=== PATIENT | female | born 1970 | race Caucasian/White ===

== ENCOUNTER 2017-04-29 10:07 | Day surgery (SDC) | payer BC ==
[~2017-04-29] VITALS: Ht 165.1 cm; Wt 84.0 kg
[2017-04-29] VITALS (12 sets, daily range): BP systolic 84–111; BP diastolic 50–69; PULSE 54–73; RESP 16–18; Ht 165.1 cm; Wt 84.0 kg
[2017-04-29] MEDS ORDERED: BUTA1CAP38 PO (10:41)
[2017-04-29] MEDS ORDERED: LEVO500T72 PO (10:41)
[2017-04-29] MEDS ORDERED: MECL-77 PO (10:41)
--- NOTE | 2017-04-29 14:07 | PREOPHP ---
DATE OF ADMISSION: 04/29/2017 HISTORY OF PRESENT ILLNESS: This is a 46-year-old lady, 2, para 2. Her last normal menstrual period was a few months prior to admission. She was admitted for D and C, hysteroscopy, possible suction curettage and cervical polypectomy. This patient bleeds heavy with her periods for many months. She had an ultrasound done and showed also a possible endometrial polyp. She had an endometrial biopsy and attempted removal of the polyp in the clinic but was unsuccessful, so she was admitted for D and C, hysteroscopy and suction curettage. The procedures were explained to the patient and she understood everything totally. The risks, benefits and alternatives were discussed with her as well. PAST PERSONAL HISTORY: asthma. ALLERGIES: NO ALLERGIES. SOCIAL HISTORY: Patient does not smoke. She does not drink. MEDICATIONS: She does not take any drugs but her iron and vitamins. GYNECOLOGIC HISTORY: She had menarche at the age of 11, every 28 days interval , 3 to 4 days duration, and moderate in amount. FAMILY HISTORY: Noncontributory. REVIEW OF SYSTEMS: CARDIOVASCULAR: No chest pain. RESPIRATORY: No cough. GASTROINTESTINAL: No diarrhea. No vomiting. GENITOURINARY: No dysuria. PHYSICAL EXAMINATION: GENERAL: Reveals a conscious coherent lady and in no acute distress. VITAL SIGNS: Her blood pressure 120/80, pulse rate 80 per minute, respirations 16 per minute. BREASTS, HEART AND LUNGS: Within normal limits. ABDOMEN: Soft. No organomegaly. PELVIC: Revealed the cervix to be firm, uterus of the upper limits of normal, and adnexa were negative for masses. RECTAL: Confirmed the pelvic findings. EXTREMITIES: No pedal edema. ADMITTING DIAGNOSIS: Menorrhagia, rule out endometrial polyp and cervical polyp. PLAN: The patient was planned to have the above procedures. The procedures were explained to her and she understood everything totally. The risks, benefits and alternatives were discussed with her as well. Dictated By: FRANCA JAY MD NS/NTS Conf#: [id number] DID#: [id number] CC: FRANCA JAY MD;*EndCC* MTDD
[2017-04-29] MEDS ORDERED: MIDAZOLAM 1 MG/ML 2 ML INJ ONE (14:11)
[2017-04-29] MEDS ORDERED: FENTAnyl 50 MCG/ML VIAL ONE (14:11)
[2017-04-29] MEDS ORDERED: PROPOFOL 20 ML ONE ×2 (14:11→15:03)
[2017-04-29] MEDS ORDERED: KETOROLAC 30 MG INJ ONE (14:52)
[2017-04-29] MEDS ORDERED: ONDANSETRON 4 MG INJ ONE (14:52)
[2017-04-29] MEDS ORDERED: DEXAMETHASONE 4 MG/ML 1 ML INJ ONE (14:52)
[2017-04-29] MEDS ORDERED: METOCLOPRAMIDE 10 MG INJ ONE (14:52)
[2017-04-29] MEDS ORDERED: METOCLOPRAMIDE 10 MG INJ IV PRN (15:00)
[2017-04-29] MEDS ORDERED: morphine (1 MG/ML) 10ML SYRINGE IV PRN ×3 (15:00)
[2017-04-29] MEDS ORDERED: OXYCODONE/ACETAMINOPHEN (5/325) TAB PO PRN ×2 (15:00)
[2017-04-29] MEDS ORDERED: MEPERIDINE 25 MG INJ IV PRN (15:00)
[2017-04-29] MEDS ORDERED: ONDANSETRON 4 MG INJ IV PRN (15:00)
[2017-04-29] MEDS ORDERED: DIPHENHYDRAMINE 50 MG INJ IV PRN (15:00)
[2017-04-29] MEDS ORDERED: HYDROmorphONE (0.2 MG/ML) 10ML SYG IV PRN ×3 (15:00)
[2017-04-29] MEDS ORDERED: EPHEDrine SULFATE 50 MG/5 ML SYG IV PRN (15:00)
[2017-04-29] MEDS ORDERED: SILVER NITRATE SWAB ONE (15:09)
[2017-04-29] MEDS ORDERED: ACETAMINOPHEN 325 MG TAB PO PRN (15:30)
--- NOTE | 2017-05-01 03:54 | OPR ---
DATE OF OPERATION: 04/29/2017 PREOPERATIVE DIAGNOSES: 1. Cervical polyp. 2. Posterior vaginal vault polyp. 3. Endometrial thickening. POSTOPERATIVE DIAGNOSES: 1. Cervical polyp. 2. Posterior vaginal vault polyp. 3. Endometrial thickening. 4. Pending pathology report. SURGEON: Rachana Barrientos MD MANAGER OF PMO: Alexander melara. ANESTHESIA: General. OPERATION PERFORMED: Fractional dilatation and curettage hysteroscopy and suction curettage, cervic al polypectomy, and posterior vaginal vault polypectomy. OPERATIVE TECHNIQUE: Under general anesthesia, the patient was prepped and draped in the usual [facility] ion for vaginal surgery. Pelvic exam under anesthesia revealed the cervix to be firm, uterus of nor mal size, and adnexa were negative for masses. Then, the heavy weight vaginal retractor was put in place, and the anterior lip of the cervix was grasped with an Allis clamp. A 1 cm endocervical poly p was excised by putting the Allis clamp at the endocervical canal. This was followed by endocervic al dilatation up to Hegar 6. Uterus was sounded to about 3 inches. Then, the hysteroscope was inse rted inside the uterine cavity and connected with a light source, and the uterus was distended with normal saline. There were no polyps nor fibroids seen. Endocervical curettage was performed, and a small amount of tissue was obtained. Endometrial curettage was performed, and a small amount of ti ssue was obtained. Suction tip size 7 was inserted inside the uterine cavity, suction curettage was done, and small amount of tissue was obtained. Then, the polyp was noted to be about 3 x 3 cm on t he posterior vaginal vault below the cervix, and this was excised by placing the band at the base of the polyp. Then, the capsule was cauterized with silver nitrate. Bleeders were checked, and there was no bleeding noted. After checking for any bleeders of which there were none, the procedure was terminated. The patient tolerated the procedure well. Estimated blood loss was minimal. Vital si gns were stable during and after the procedure. As mentioned, the cervical polyp was 1 x 1 cm, and the posterior vaginal vault polyp was 3 x 3 cm. The patient tolerated the procedure well. Estimate d blood loss was minimal. Vital signs were stable during and after the procedure. Dictated By: RACHANA BARRIENTOS MD NS/NTS Conf#: [id number] DID#: [id number]
== END 2017-04-29 16:35 | disposition home or self-care (01) ==
LOC: SDS 10:07
PROVIDERS: ATTEND Obstetrics & Gynecology
DX: N84.2 Polyp of vagina (principal); N72 Inflammatory disease of cervix uteri; N84.1 Polyp of cervix uteri
CPT/HCPCS: 58558; 84703; 88305; J1100; J1885; J2250; J2405; J2765; J3010; Z7512; Z7610

== ENCOUNTER 2019-04-16 18:09 | Inpatient (IN) | payer BC ==
[~2019-04-16] VITALS: Ht 165.1 cm; Wt 88.3 kg
[~2019-04-16 18:09] MED LIST: BUTA1CAP38 PO; LEVO500T48 PO; MECL-77 PO
[2019-04-17 00:36] VITALS: BP 124/56; PULSE 78; RESP 18
[2019-04-17] MEDS ORDERED: ACETAMINOPHEN 325 MG TAB PO PRN (01:00)
[2019-04-17] MEDS: PIPER-TAZO 3.375 GM IV (PMX) 100 ML IVPB SCH ×4 (01:11→22:49)
[2019-04-17] MEDS: SOD CHLORIDE 0.9% 1,000 ML IV SCH ×2 (01:11→21:00)
[2019-04-17 01:33] VITALS: Ht 165.1 cm; Wt 88.3 kg
[2019-04-17 01:38] VITALS: BP 105/53; PULSE 62; RESP 16
[2019-04-17] MEDS: PANTOPRAZOLE (EC) 40 MG TAB PO SCH (05:42)
[2019-04-17 07:43] VITALS: BP 110/58; PULSE 59; RESP 17
[2019-04-17] MEDS: ENOXAPARIN 40 MG/0.4 ML SYG SC SCH (08:27)
--- NOTE | 2019-04-17 11:57 | HP ---
Date/Time of Note Date/Time of Note DATE: 04/17/19 TIME: 11:47 Assessment/Plan VTE Prophylaxis Risk score (from Ns)>0 risk: 2 SCD applied (from Ns): No SCD contraindicated: other Pharmacological prophylaxis: LMWH Lines/Catheters IV C[facility]ter Type (from [facility]): Peripheral IV Urinary Cath still in place: No Assessment/Plan Hospital Course 1. Cellulitis right arm more likely due to Herpes zoster. 2. hyperglycemia, pt denied DM type II 3. Obesity 4. Under arm fungal infection old 5. Fresh papula on the trunk right side Assessment/Plan -Hg A1 c 5.3 -clotrimazole cream under the breast -cont droplet isolation -titer Herpes Zoster, pt had disease when she was young -Id consult dr yousif, called -DVT prop lOVeNOX -gi PROPH. PROTONIX Result Diagram: 04/17/198 04/17/19427 Results 24hrs Laboratory Tests Test 04/17/19 04:28 White Blood Count 6.7 Red Blood Count 4.20 Hemoglobin 12.8 Hematocrit 38.1 Mean Corpuscular Volume 90.7 Mean Corpuscular Hemoglobin 30.5 Mean Corpuscular Hemoglobin Concent 33.6 Red Cell Distribution Width 12.7 Platelet Count 129 L Mean Platelet Volume 11.3 H Immature Granulocytes % 0.400 Neutrophils % 54.8 Lymphocytes % 29.1 Monocytes % 6.6 Eosinophils % 8.7 H Basophils % 0.4 Nucleated Red Blood Cells % 0.0 Immature Granulocytes # 0.030 Neutrophils # 3.7 Lymphocytes # 1.9 Monocytes # 0.4 Eosinophils # 0.6 H Basophils # 0.0 Nucleated Red Blood Cells # 0.0 Sodium Level 141 Potassium Level 4.0 Chloride Level 111 H Carbon Dioxide Level 22 Anion Gap 8 Blood Urea Nitrogen 12 Creatinine 0.53 Est Glomerular Filtrat Rate mL/min > 60 Glucose Level 82 Calcium Level 8.0 L Total Bilirubin 0.8 Direct Bilirubin 0.00 Indirect Bilirubin 0.8 Aspartate Amino Transf (AST/SGOT) 21 Alanine Aminotransferase (ALT/SGPT) 30 Alkaline Phosphatase 62 Total Protein 5.9 L Albumin 2.9 L Globulin 3.00 Albumin/Globulin Ratio 0.96 HPI/ROS Admit Date/Time Admit Date/Time April 17, 2019 at 00:11 Hx of Present Illness This 48 yo female with no medical hx initally was seen in ER regarfding her right arm rash for 1 week and was prscribed steroids and Acyclovir. RAsh is not changes, despite she got more blisters on trunk. Pt went to [facility] ER, In ER lab was drawn grossly normal except RBC 5.21, eos. 6.6%in CBC and BMP madeleine; normal lactic acid. She was given normal saline, started on Rocephin, , acyclovir was continued, , dexamethasone was c/ed started on isolation, MRSA was taken, results are not available. No radiologic studyes was done. Med. rec was reviewed. PMH/Family/Social Past Medical History Medications Current Medications Diphenhydramine HCl (Benadryl) 25 mg TID PRN PO ITCHING; Start 04/17/19 at 01:00 Acetaminophen/ Hydrocodone Bitart ([place] (5/325)) 1 tab Q6H PRN PO MODERATE PAIN LEVEL 4-6; Start 04/17/19 at 01:00 Enoxaparin Sodium (Lovenox) 40 mg DAILY SC Last administered on 04/17/19at 08:27; Admin Dose 40 MG; Start 04/17/19 at 09:00 Pantoprazole (Protonix Tab) 40 mg DAILY@06 PO Last administered on 04/17/19at 05:42; Admin Dose 40 MG; Start 04/17/19 at 06:00 Acetaminophen (Tylenol Tab) 650 mg Q6H PRN PO MILD PAIN(1-3)OR ELEVATED TEMP; Start 04/17/19 at 01:00 Piperacillin Sod/ Tazobactam Sod 100 ml @ 200 mls/hr Q8 IVPB Last administered on 04/17/19at 05:43; Admin Dose 200 MLS/HR; Start 04/17/19 at 01:00 Sodium Chloride 1,000 ml @ 50 mls/hr Q20H IV Last administered on 04/17/19at 01:11; Admin Dose 50 MLS/HR; Start 04/17/19 at 01:00 Coded Allergies: No Known Allergy (Unverified , 04/29/17) Past Surgical History Past Surgical Hx: other (c section) Social History Alcohol Use: none Smoking Status: Never smoker Drug Use: none Exam/Review of Systems Vital Signs Vitals Vital Signs Date Temp Pulse Resp B/P (MAP) Pulse Ox O2 O2 Flow FiO2 Time Delivery Rate 5/19/19 98.5 59 17 110/58 98 07:43 (75) Intake and Output 04/16/19 04/16/19 04/17/19 1515:00 23:00 07:00 IntakeIntake Total 350 ml BalanceBalance 350 ml Exam Exam under the breast chronic changes fungal type Constitutional: alert, oriented Respiratory: clear to auscultation Cardiovascular: regular rate and rhythm Gastrointestinal: soft Skin: rash or lesions (right arm), other (trunk fresh lesions) BRANDON SANTANA April 17, 2019 11:57
[2019-04-17] MEDS: CLOTRIMAZOLE 1% 30 GM CR TOP SCH ×2 (14:33→22:07)
[2019-04-17] MEDS: ACYCLOVIR 800 MG TAB PO SCH ×2 (14:34→22:06)
[2019-04-17 14:50] VITALS: BP 102/71; PULSE 75; RESP 17
--- NOTE | 2019-04-17 16:57 | CONS ---
DATE OF ADMISSION: 04/17/2019 DATE OF CONSULTATION: 04/17/2019 TYPE OF CONSULTATION: Infectious disease. REASON FOR CONSULTATION: Antibiotic management. HISTORY OF PRESENT ILLNESS: Siri Jimenez is a 48-year-old female in generally good health wh o is seen in the emergency room with right arm rash of 1 week's duration. She was prescribed steroid s and acyclovir. She also got more blisters on her trunk. She went to [facility] Room, where she was evaluated and also was started on Rocephin and acyclovir was continued. Dexamet hasone was discontinued and MRSA swab was taken. The patient was sent to [facility]. On ad mission, white count 6.7, H and H 12.8 and 38.5, platelet count 129,000. BUN and creatinine is 12/0. 53, glucose of 82. The patient has cellulitis of the right arm. PAST MEDICAL HISTORY: Operations as outlined. FAMILY HISTORY: Noncontributory. SOCIAL HISTORY: Does not smoke, drink or abuse drugs. ALLERGIES: NONE TO PENICILLIN, SULFA OR FOODS. MEDICATIONS: Per chart. REVIEW OF SYSTEMS: As per HPI. PHYSICAL EXAMINATION: GENERAL: The patient is a moderately obese female who is awake, responsive, in no acute distress. VITAL SIGNS: Stable. She is afebrile. SKIN: Without generalized rash. She has evidence of herpes zoster of the right arm with some cellul itis. NECK: Supple. LYMPH NODES: None palpable. CHEST: Decreased breath sounds at the bases. HEART: Without murmur or gallop. ABDOMEN: Soft, nontender without organosplenomegaly or masses. EXTREMITIES: Without cyanosis, clubbing or edema. RECTAL AND GENITAL: Deferred. NEUROLOGIC: No focal neurological abnormality. IMPRESSION AND PLAN: The patient with probable herpes zoster, white count of 6.7. The patient has r ight arm rash for about a week. At this time, she is on acyclovir 800 mg 3 times a day. She has mai trimazole lotion for fungal infection and she was given Zosyn for the possibility of cellulitis, alth ough we may want to switch her over to vancomycin or to a medication that covers methicillin-resistan t Staphylococcus aureus. Wound care consult has been ordered. I will dictate my findings to the hos pitalist and also to Dr. Crow and Dr. Duron and nurse practitioner, Meseret Menchaca. Dictated By: QUIN MOCTEZUMA MD, JD/TANVIR Conf#: [id number] DID#: [id number] CC: TARAS CROW MD;*EndCC*
[2019-04-17] MEDS ORDERED: VANCOMYCIN IV PER PHARMACY XX SCH (17:00)
[2019-04-17] MEDS ORDERED: VANCOMYCIN HCL 1.75 GM in SOD CHLORIDE 0.9% 500 ML IVPB ONE (18:00)
[2019-04-17 20:43] VITALS: BP 114/67; PULSE 70; RESP 18
[2019-04-18 01:36] VITALS: BP 111/56; PULSE 67; RESP 18
[2019-04-18] MEDS: HYDROCODONE/APAP (5/325) TAB PO PRN ×2 (01:46→20:16)
[2019-04-18] MEDS: SOD CHLORIDE 0.9% 1,000 ML IV SCH (03:16)
[2019-04-18] MEDS: PIPER-TAZO 3.375 GM IV (PMX) 100 ML IVPB SCH ×2 (05:08→13:21)
[2019-04-18] MEDS: PANTOPRAZOLE (EC) 40 MG TAB PO SCH (05:52)
[2019-04-18] MEDS ORDERED: VANCOMYCIN HCL 1.5 GM in SOD CHLORIDE 0.9% 250 ML IVPB SCH (06:00)
[2019-04-18 07:37] VITALS: BP 119/61; PULSE 64; RESP 18
[2019-04-18] MEDS: CLOTRIMAZOLE 1% 30 GM CR TOP SCH ×2 (08:19→20:17)
[2019-04-18] MEDS: ACYCLOVIR 800 MG TAB PO SCH ×3 (08:19→20:16)
[2019-04-18] MEDS: ENOXAPARIN 40 MG/0.4 ML SYG SC SCH (08:22)
--- NOTE | 2019-04-18 13:54 | CONS ---
Assessment/Plan Assessment/Plan Hospital Course (Demo Recall) Patient is alert eating lunch looks comfortable denies pain no fevers overnight WBC 6.9 no shift no bands BUN 14 creatinine 0.56 Antimicrobials: Vancomycin, Zosyn, acyclovir Physical examination: Obese well-developed middle-aged woman who is alert in no distress. Head atraumatic normocephalic neck is supple chest rise symmetrical breath sounds diminished bases. Heart: S1-S2. Abdomen soft bowel sounds present. Extremities without cyanosis. Skin. Right upper extremity with hepatic lesions also on the right breast extending to the trunk Assessment: 1. Herpes zoster with superimposed right upper extremity cellulitis 2. Diabetes Plan: Continue acyclovir, DC vancomycin and Zosyn, add doxycycline, serology for HIV Consultation Date/Type/Reason Admit Date/Time April 17, 2019 at 00:11 Initial Consult Date Type of Consult id Date/Time of Note DATE: 04/18/19 TIME: 13:53 Exam/Review of Systems Exam Vitals Vital Signs Date Temp Pulse Resp B/P (MAP) Pulse Ox O2 O2 Flow FiO2 Time Delivery Rate 04/18/19 98.5 64 18 119/61 97 07:37 (80) Intake and Output 04/17/19 04/17/19 04/18/19 1515:00 23:00 07:00 IntakeIntake Total 960 ml 2014 ml 575 ml BalanceBalance 960 ml 2014 ml 575 ml Results Result Diagram: 04/18/19 0433 04/18/19 0433 Results 24hrs Laboratory Tests Test 04/18/19 04:33 White Blood Count 6.9 Red Blood Count 4.20 Hemoglobin 12.9 Hematocrit 37.7 Mean Corpuscular Volume 89.8 Mean Corpuscular Hemoglobin 30.7 Mean Corpuscular Hemoglobin Concent 34.2 Red Cell Distribution Width 12.5 Platelet Count 159 # Mean Platelet Volume 10.7 H Immature Granulocytes % 0.300 Neutrophils % 65.4 Lymphocytes % 20.3 Monocytes % 7.1 Eosinophils % 6.6 Basophils % 0.3 Nucleated Red Blood Cells % 0.0 Immature Granulocytes # 0.020 Neutrophils # 4.5 Lymphocytes # 1.4 Monocytes # 0.5 Eosinophils # 0.5 Basophils # 0.0 Nucleated Red Blood Cells # 0.0 Sodium Level 140 Potassium Level 3.9 Chloride Level 109 Carbon Dioxide Level 25 Anion Gap 6 Blood Urea Nitrogen 14 Creatinine 0.56 Est Glomerular Filtrat Rate mL/min > 60 Glucose Level 102 Calcium Level 8.6 Medications Medication Current Medications Diphenhydramine HCl (Benadryl) 25 mg TID PRN PO ITCHING; Start 04/17/19 at 01:00 Acetaminophen/ Hydrocodone Bitart ([place] (5/325)) 1 tab Q6H PRN PO MODERATE PAIN LEVEL 4-6 Last administered on 04/18/19 01:46; Admin Dose 1 TAB; Start 04/17/19 at 01:00 Enoxaparin Sodium (Lovenox) 40 mg DAILY SC Last administered on 04/18/19 08:22; Admin Dose 40 MG; Start 04/17/19 at 09:00 Pantoprazole (Protonix Tab) 40 mg DAILY@06 PO Last administered on 04/18/19 05:52; Admin Dose 40 MG; Start 04/17/19 at 06:00 Acetaminophen (Tylenol Tab) 650 mg Q6H PRN PO MILD PAIN(1-3)OR ELEVATED TEMP; Start 04/17/19 at 01:00 Piperacillin Sod/ Tazobactam Sod 100 ml @ 200 mls/hr Q8 IVPB Last administered on 04/18/19 13:21; Admin Dose 200 MLS/HR; Start 04/17/19 at 01:00 Sodium Chloride 1,000 ml @ 50 mls/hr Q20H IV Last administered on 04/18/19 03:16; Admin Dose 50 MLS/HR; Start 04/17/19 at 01:00 Acyclovir (Zovirax) 800 mg TID PO Last administered on 04/18/19 13:21; Admin Dose 800 MG; Start 04/17/19 at 13:00 Clotrimazole (Lotrimin Cr) 1 applic BID TOP Last administered on 04/18/19 08:19; Admin Dose 1 APPLIC; Start 04/17/19 at 12:30 Vancomycin HCl (Vanco Iv Per Pharmacy) VANCOMYCIN PER PHARMACY PER PROTOCOL XX ; Start 04/17/19 at 17:00 Vancomycin HCl 1.5 gm/Sodium Chloride 250 ml @ 83.333 mls/ hr Q12H IVPB Last administered on 04/18/19 05:49; Admin Dose 83.333 MLS/HR; Start 5/20/19 at 06:00 LILLIAN CROWLEY NP April 18, 2019 13:54
[2019-04-18 14:53] VITALS: BP 107/61; PULSE 71; RESP 16
--- NOTE | 2019-04-18 15:50 | PN ---
Date/Time of Note Date/Time of Note DATE: 04/18/19 TIME: 15:50 Assessment/Plan VTE Prophylaxis Risk score (from Ns)>0 risk: 2 SCD applied (from [facility]): No SCD contraindicated: low risk/ambulating Pharmacological prophylaxis: NA/contraindicated Pharm contraindication: low risk/ambulating Lines/Catheters IV Catheter Type (from [facility]): Peripheral IV Urinary Cath still in place: No Assessment/Plan Hospital Course 1. Cellulitis right arm with clear blisters/abdominal lesion ? Herpes zoster.?? allergic , it happened when pt was working in [employer] 2. hyperglycemia, HBA1C normal 3. Obesity 4. Under arm fungal infection old 5. Fresh papula on the trunk right side Assessment/Plan - on acyclovir/doxy -titer Herpes Zoster, pt had disease when she was young -Id consult dr yousif, called - wound culture -?? steroids, tried contacting Dr Rice dermatology who dont see hmo pts -DVT prop lOVeNOX Result Diagram: 04/18/19 0433 04/18/19 0433 Results 24hrs Laboratory Tests Test 04/18/19 04:33 White Blood Count 6.9 Red Blood Count 4.20 Hemoglobin 12.9 Hematocrit 37.7 Mean Corpuscular Volume 89.8 Mean Corpuscular Hemoglobin 30.7 Mean Corpuscular Hemoglobin Concent 34.2 Red Cell Distribution Width 12.5 Platelet Count 159 # Mean Platelet Volume 10.7 H Immature Granulocytes % 0.300 Neutrophils % 65.4 Lymphocytes % 20.3 Monocytes % 7.1 Eosinophils % 6.6 Basophils % 0.3 Nucleated Red Blood Cells % 0.0 Immature Granulocytes # 0.020 Neutrophils # 4.5 Lymphocytes # 1.4 Monocytes # 0.5 Eosinophils # 0.5 Basophils # 0.0 Nucleated Red Blood Cells # 0.0 Sodium Level 140 Potassium Level 3.9 Chloride Level 109 Carbon Dioxide Level 25 Anion Gap 6 Blood Urea Nitrogen 14 Creatinine 0.56 Est Glomerular Filtrat Rate mL/min > 60 Glucose Level 102 Calcium Level 8.6 HIV (1&2) Antibody NEGATIVE Subjective 24 Hr Interval Summary Free Text/Dictation perisistent rash in rt arm no fevers no pain Exam/Review of Systems Exam Vitals Vital Signs Date Temp Pulse Resp B/P (MAP) Pulse Ox O2 O2 Flow FiO2 Time Delivery Rate 04/18/19 98.0 71 16 107/61 97 14:53 (76) Intake and Output 04/17/19 04/17/19 04/18/19 1515:00 23:00 07:00 IntakeIntake Total 960 ml 2014 ml 575 ml BalanceBalance 960 ml 2014 ml 575 ml Exam Head atraumatic normocephalic neck is supple chest rise symmetrical breath sounds diminished bases. Heart: S1-S2. Abdomen soft bowel sounds present. Ext Skin. Right upper extremity with erthyema blisters multple rt side of abdomen>red streaks Results Results 24hrs Laboratory Tests Test 04/18/19 04:33 White Blood Count 6.9 Red Blood Count 4.20 Hemoglobin 12.9 Hematocrit 37.7 Mean Corpuscular Volume 89.8 Mean Corpuscular Hemoglobin 30.7 Mean Corpuscular Hemoglobin Concent 34.2 Red Cell Distribution Width 12.5 Platelet Count 159 # Mean Platelet Volume 10.7 H Immature Granulocytes % 0.300 Neutrophils % 65.4 Lymphocytes % 20.3 Monocytes % 7.1 Eosinophils % 6.6 Basophils % 0.3 Nucleated Red Blood Cells % 0.0 Immature Granulocytes # 0.020 Neutrophils # 4.5 Lymphocytes # 1.4 Monocytes # 0.5 Eosinophils # 0.5 Basophils # 0.0 Nucleated Red Blood Cells # 0.0 Sodium Level 140 Potassium Level 3.9 Chloride Level 109 Carbon Dioxide Level 25 Anion Gap 6 Blood Urea Nitrogen 14 Creatinine 0.56 Est Glomerular Filtrat Rate mL/min > 60 Glucose Level 102 Calcium Level 8.6 HIV (1&2) Antibody NEGATIVE Medications Medication Current Medications Diphenhydramine HCl (Benadryl) 25 mg TID PRN PO ITCHING; Start 04/17/19 at 01:00 Acetaminophen/ Hydrocodone Bitart ([place] (5/325)) 1 tab Q6H PRN PO MODERATE PAIN LEVEL 4-6 Last administered on 04/18/19at 01:46; Admin Dose 1 TAB; Start 04/17/19 at 01:00 Enoxaparin Sodium (Lovenox) 40 mg DAILY SC Last administered on 04/18/19at 08:22; Admin Dose 40 MG; Start 04/17/19 at 09:00 Pantoprazole (Protonix Tab) 40 mg DAILY@06 PO Last administered on 04/18/19at 05:52; Admin Dose 40 MG; Start 04/17/19 at 06:00 Acetaminophen (Tylenol Tab) 650 mg Q6H PRN PO MILD PAIN(1-3)OR ELEVATED TEMP; Start 04/17/19 at 01:00 Sodium Chloride 1,000 ml @ 50 mls/hr Q20H IV Last administered on 04/18/19at 03:16; Admin Dose 50 MLS/HR; Start 04/17/19 at 01:00 Acyclovir (Zovirax) 800 mg TID PO Last administered on 04/18/19at 13:21; Admin Dose 800 MG; Start 04/17/19 at 13:00 Clotrimazole (Lotrimin Cr) 1 applic BID TOP Last administered on 04/18/19at 08:19; Admin Dose 1 APPLIC; Start 04/17/19 at 12:30 Doxycycline Hyclate (Vibramycin) 100 mg BID PO ; Start 04/18/19 at 21:00 ADRIANA JOHNSON MD April 18, 2019 15:50
[2019-04-18 19:26] VITALS: BP 116/59; PULSE 69; RESP 16
[2019-04-18] MEDS: DOXYCYCLINE 100 MG TAB PO SCH (20:16)
[2019-04-19 02:00] VITALS: BP 113/55; PULSE 71; RESP 16
[2019-04-19] MEDS: PANTOPRAZOLE (EC) 40 MG TAB PO SCH (05:40)
[2019-04-19] MEDS: SOD CHLORIDE 0.9% 1,000 ML IV SCH ×2 (05:40→13:00)
[2019-04-19 07:24] VITALS: BP 107/72; PULSE 59; RESP 17
[2019-04-19] MEDS: ENOXAPARIN 40 MG/0.4 ML SYG SC SCH (09:38)
[2019-04-19] MEDS: DOXYCYCLINE 100 MG TAB PO SCH (09:39)
[2019-04-19] MEDS: ACYCLOVIR 800 MG TAB PO SCH ×3 (09:39→21:11)
[2019-04-19] MEDS: CLOTRIMAZOLE 1% 30 GM CR TOP SCH ×2 (09:41→21:10)
[2019-04-19 13:54] VITALS: BP 117/66; PULSE 86; RESP 17
--- NOTE | 2019-04-19 15:57 | CONS ---
Assessment/Plan Assessment/Plan Hospital Course (Demo Recall) Patient is awake looks comfortable no fevers overnight she has pain under her right breast and right arm no labs this morning Wound culture negative Antimicrobials doxycycline, acyclovir Physical examination: Obese well-developed middle-aged woman who is alert in no distress. Head atraumatic normocephalic neck is supple chest rise symmetrical breath sounds diminished bases. Heart: S1-S2. Abdomen soft bowel sounds present. Extremities without cyanosis. Skin. Right upper extremity with lesions and blisters also on the right breast extending to the trunk Assessment: 1. Herpes zoster with superimposed right upper extremity cellulitis, r/o other ?impetigo 2. Diabetes Plan: Continue acyclovir, restart IV Vanco, await for Zoster serology, supportive care, MRSA screen Consultation Date/Type/Reason Admit Date/Time April 17, 2019 at 00:11 Initial Consult Date Type of Consult id Date/Time of Note DATE: 04/19/19 TIME: 15:54 Exam/Review of Systems Exam Vitals Vital Signs Date Temp Pulse Resp B/P (MAP) Pulse Ox O2 O2 Flow FiO2 Time Delivery Rate 04/19/19 98.8 86 17 117/66 96 Room Air 13:54 (83) Intake and Output 04/18/19 04/18/19 04/19/19 1515:00 23:00 07:00 IntakeIntake Total 1530 ml 990 ml 390 ml BalanceBalance 1530 ml 990 ml 390 ml Results Result Diagram: 04/18/19 0433 04/18/19 0433 Medications Medication Current Medications Diphenhydramine HCl (Benadryl) 25 mg TID PRN PO ITCHING; Start 04/17/19 at 01:00 Acetaminophen/ Hydrocodone Bitart ([place] (5/325)) 1 tab Q6H PRN PO MODERATE PAIN LEVEL 4-6 Last administered on 04/18/19at 20:16; Admin Dose 1 TAB; Start 04/17/19 at 01:00 Enoxaparin Sodium (Lovenox) 40 mg DAILY SC Last administered on 04/19/19at 09:38; Admin Dose 40 MG; Start 04/17/19 at 09:00 Pantoprazole (Protonix Tab) 40 mg DAILY@06 PO Last administered on 04/19/19at 05:40; Admin Dose 40 MG; Start 04/17/19 at 06:00 Acetaminophen (Tylenol Tab) 650 mg Q6H PRN PO MILD PAIN(1-3)OR ELEVATED TEMP; Start 04/17/19 at 01:00 Sodium Chloride 1,000 ml @ 50 mls/hr Q20H IV Last administered on 04/19/19 05:40; Admin Dose 50 MLS/HR; Start 04/17/19 at 01:00 Acyclovir (Zovirax) 800 mg TID PO Last administered on 04/19/19 13:22; Admin Dose 800 MG; Start 04/17/19 at 13:00 Clotrimazole (Lotrimin Cr) 1 applic BID TOP Last administered on 04/19/19 09:41; Admin Dose 1 APPLIC; Start 04/17/19 at 12:30 Doxycycline Hyclate (Vibramycin) 100 mg BID PO Last administered on 04/19/19 09:39; Admin Dose 100 MG; Start 04/18/19 at 21:00 LILLIAN CROWLEY NP April 19, 2019 15:56
[2019-04-19] MEDS ORDERED: VANCOMYCIN IV PER PHARMACY XX SCH (16:00)
[2019-04-19] MEDS: DIPHENHYDRAMINE 25 MG CAP PO PRN (19:10)
[2019-04-19 19:28] VITALS: BP 114/61; PULSE 73; RESP 18
[2019-04-19] MEDS: VANCOMYCIN HCL 1.5 GM in SOD CHLORIDE 0.9% 250 ML IVPB SCH (19:56)
[2019-04-19 22:58] LABS: VARICELLA-ZOSTER VIRUS AB IgM 0.45
[2019-04-20] MEDS: DIPHENHYDRAMINE 25 MG CAP PO PRN (01:04)
[2019-04-20 01:08] VITALS: BP 108/57; PULSE 64; RESP 18
[2019-04-20] MEDS: PANTOPRAZOLE (EC) 40 MG TAB PO SCH (06:08)
[2019-04-20 08:23] VITALS: BP 115/57; PULSE 61; RESP 16
[2019-04-20] MEDS: ACYCLOVIR 800 MG TAB PO SCH (08:47)
[2019-04-20] MEDS: VANCOMYCIN HCL 1.5 GM in SOD CHLORIDE 0.9% 250 ML IVPB SCH ×2 (08:47→18:31)
[2019-04-20] MEDS: ENOXAPARIN 40 MG/0.4 ML SYG SC SCH (09:03)
--- NOTE | 2019-04-20 11:39 | PN ---
Date/Time of Note Date/Time of Note DATE: 04/20/19 TIME: 11:39 Assessment/Plan VTE Prophylaxis Risk score (from Nsg)>0 risk: 1 SCD applied (from Nsg): Yes Pharmacological prophylaxis: NA/contraindicated Pharm contraindication: low risk/ambulating Lines/Catheters IV Catheter Type (from Nrsg): Peripheral IV Urinary Cath still in place: No Assessment/Plan Hospital Course 1. Cellulitis right arm with clear blisters/abdominal lesion clear allergic/contact dermatitis questionable poison al , it happened when pt was working in garden, now on lefta rm with superadded infection 2. hyperglycemia, HBA1C normal 3. Obesity 4. Under arm fungal infection old 5. Fresh papula on the trunk right side Assessment/Plan - pt was seen by dermatology dr paredes who beleived pt had allergic/contact lesions? poison al?? - will start high dose steroids and topical steroids - herpes zoster igm neg - on vanco/zosyn - wound culture -DVT prop lOVeNOX Result Diagram: 04/18/19 0433 04/20/19 0438 Results 24hrs Laboratory Tests Test 04/20/19 04:38 Blood Urea Nitrogen 14 Creatinine 0.59 Subjective 24 Hr Interval Summary Free Text/Dictation spoke to To Dr. Paredes who saw the patient yesterday and believe that patient had a contact/allergic dermatitis with bullous eruptions Given the disease localization dermatome involvement Feels the lesions are present on the right arm are somewhat little improved but however are present on the left arm now Exam/Review of Systems Exam Vitals Vital Signs Date Temp Pulse Resp B/P (MAP) Pulse Ox O2 O2 Flow FiO2 Time Delivery Rate 04/20/19 98.2 61 16 115/57 97 08:23 (76) 04/19/19 Room Air 13:54 Intake and Output 04/19/19 04/19/19 04/20/19 1515:00 23:00 07:00 IntakeIntake Total 480 ml 240 ml 450 ml BalanceBalance 480 ml 240 ml 450 ml Exam Head atraumatic normocephalic neck is supple chest rise symmetrical breath sounds diminished bases. Heart: S1-S2. Abdomen soft bowel sounds present. Ext Skin. Right upper extremity with erthyema blisters multple , left arm streaky lesions rt side of abdomen>red streaks Results Results 24hrs Laboratory Tests Test 04/20/19 04:38 Blood Urea Nitrogen 14 Creatinine 0.59 Medications Medication Current Medications Diphenhydramine HCl (Benadryl) 25 mg TID PRN PO ITCHING Last administered on 04/20/19 01:04; Admin Dose 25 MG; Start 04/17/19 at 01:00 Acetaminophen/ Hydrocodone Bitart ([place] (5/325)) 1 tab Q6H PRN PO MODERATE PAIN LEVEL 4-6 Last administered on 04/18/19 20:16; Admin Dose 1 TAB; Start at 01:00 Enoxaparin Sodium (Lovenox) 40 mg DAILY SC Last administered on 04/20/19 09:03; Admin Dose 40 MG; Start 04/17/19 at 09:00 Pantoprazole (Protonix Tab) 40 mg DAILY@06 PO Last administered on 04/20/19 06:08; Admin Dose 40 MG; Start 04/17/19 at 06:00 Acetaminophen (Tylenol Tab) 650 mg Q6H PRN PO MILD PAIN(1-3)OR ELEVATED TEMP; Start 04/17/19 at 01:00 Clotrimazole (Lotrimin Cr) 1 applic BID TOP Last administered on 04/19/19at 21:10; Admin Dose 1 APPLIC; Start 04/17/19 at 12:30 Vancomycin HCl (Vanco Iv Per Pharmacy) VANCOMYCIN PER PHARMACY PER PROTOCOL XX ; Start 04/19/19 at 16:00 Vancomycin HCl 1.5 gm/Sodium Chloride 250 ml @ 83.333 mls/ hr Q12H IVPB Last administered on 04/20/19 08:47; Admin Dose 83.333 MLS/HR; Start 04/19/19 at 18:30 Piperacillin Sod/ Tazobactam Sod 100 ml @ 200 mls/hr Q6 IVPB ; Start 04/20/19 at 12:00 ADRIANA JOHNSON MD April 20, 2019 11:39
[2019-04-20] MEDS: CLOTRIMAZOLE 1% 30 GM CR TOP SCH ×2 (11:51→20:58)
[2019-04-20] MEDS: PIPER-TAZO 3.375 GM IV (PMX) 100 ML IVPB SCH ×2 (13:45→18:03)
[2019-04-20] MEDS: CLOBETASOL 0.05% 15 GM OINT TOP SCH ×2 (13:45→20:58)
[2019-04-20] MEDS: predniSONE 20 MG TAB PO SCH (13:45)
--- NOTE | 2019-04-20 14:08 | CONS ---
Assessment/Plan Assessment/Plan Hospital Course (Demo Recall) No acute changes patient is alert sitting in bed no fevers overnight. Right arm lesions look better. Zoster virus IgM came back negative. Drainage culture negative Physical examination: Obese well-developed middle-aged woman who is alert in no distress. Head atraumatic normocephalic neck is supple chest rise symmetrical breath sounds diminished bases. Heart: S1-S2. Abdomen soft bowel sounds present. Extremities without cyanosis. Skin. Right upper extremity with lesions and blisters also on the right breast extending to the trunk Assessment: 1. Right upper extremity/right breast lesions with blisters 2. Diabetes Plan: Discontinue acyclovir, add Zosyn, continue IV vancomycin, await for clinical improvement, follow MRSA swab Consultation Date/Type/Reason Admit Date/Time April 17, 2019 at 00:11 Initial Consult Date Type of Consult id Date/Time of Note DATE: 04/20/19 TIME: 14:07 Exam/Review of Systems Exam Vitals Vital Signs Date Temp Pulse Resp B/P (MAP) Pulse Ox O2 O2 Flow FiO2 Time Delivery Rate 04/20/19 98.2 61 16 115/57 97 08:23 (76) 04/19/19 Room Air 13:54 Intake and Output 04/19/19 04/19/19 04/20/19 1515:00 23:00 07:00 IntakeIntake Total 480 ml 240 ml 450 ml BalanceBalance 480 ml 240 ml 450 ml Results Result Diagram: 04/18/19 0433 04/20/19 0438 Results 24hrs Laboratory Tests Test 04/20/19 04:38 Blood Urea Nitrogen 14 Creatinine 0.59 Medications Medication Current Medications Diphenhydramine HCl (Benadryl) 25 mg TID PRN PO ITCHING Last administered on 04/20/19at 01:04; Admin Dose 25 MG; Start 04/17/19 at 01:00 Acetaminophen/ Hydrocodone Bitart ([place] (5/325)) 1 tab Q6H PRN PO MODERATE PAIN LEVEL 4-6 Last administered on 04/18/19at 20:16; Admin Dose 1 TAB; Start 04/17/19 at 01:00 Enoxaparin Sodium (Lovenox) 40 mg DAILY SC Last administered on 04/20/19at 09:03; Admin Dose 40 MG; Start 04/17/19 at 09:00 Pantoprazole (Protonix Tab) 40 mg DAILY@06 PO Last administered on 04/20/19 06:08; Admin Dose 40 MG; Start 04/17/19 at 06:00 Acetaminophen (Tylenol Tab) 650 mg Q6H PRN PO MILD PAIN(1-3)OR ELEVATED TEMP; Start 04/17/19 at 01:00 Clotrimazole (Lotrimin Cr) 1 applic BID TOP Last administered on 04/20/19 11:51; Admin Dose 1 APPLIC; Start 04/17/19 at 12:30 Vancomycin HCl (Vanco Iv Per Pharmacy) VANCOMYCIN PER PHARMACY PER PROTOCOL XX ; Start 04/19/19 at 16:00 Vancomycin HCl 1.5 gm/Sodium Chloride 250 ml @ 83.333 mls/ hr Q12H IVPB Last administered on 04/20/19 08:47; Admin Dose 83.333 MLS/HR; Start 04/19/19 at 18:30 Piperacillin Sod/ Tazobactam Sod 100 ml @ 200 mls/hr Q6 IVPB Last administered on 04/20/19 13:45; Admin Dose 200 MLS/HR; Start 04/20/19 at 12:00 Prednisone (Prednisone) 60 mg DAILY PO Last administered on 04/20/19 13:45; Admin Dose 60 MG; Start 04/20/19 at 12:00 Clobetasol Propionate (Temovate 0.05% Oint) 1 applic BID TOP Last administered on 04/20/19 13:45; Admin Dose 1 APPLIC; Start 04/20/19 at 12:00 LILLIAN CROWLEY NP April 20, 2019 14:08
[2019-04-20 14:21] VITALS: BP 105/57; PULSE 77; RESP 16
[2019-04-20 19:35] VITALS: BP 121/66; PULSE 99; RESP 17
[2019-04-21] MEDS: PIPER-TAZO 3.375 GM IV (PMX) 100 ML IVPB SCH ×4 (00:34→18:27)
[2019-04-21 02:00] VITALS: BP 108/57; PULSE 63; RESP 16
[2019-04-21] MEDS: PANTOPRAZOLE (EC) 40 MG TAB PO SCH (05:37)
[2019-04-21] MEDS: VANCOMYCIN HCL 1.5 GM in SOD CHLORIDE 0.9% 250 ML IVPB SCH (06:21)
[2019-04-21 07:52] VITALS: BP 108/59; PULSE 68; RESP 18
[2019-04-21] MEDS: predniSONE 20 MG TAB PO SCH (08:50)
[2019-04-21] MEDS: CLOTRIMAZOLE 1% 30 GM CR TOP SCH ×2 (08:51→21:28)
[2019-04-21] MEDS: CLOBETASOL 0.05% 15 GM OINT TOP SCH ×2 (08:51→21:36)
[2019-04-21] MEDS: ENOXAPARIN 40 MG/0.4 ML SYG SC SCH (08:58)
--- NOTE | 2019-04-21 09:35 | PN ---
Date/Time of Note Date/Time of Note DATE: 04/21/19 TIME: 09:35 Assessment/Plan VTE Prophylaxis Risk score (from Nsg)>0 risk: 1 SCD applied (from Nsg): Yes Pharmacological prophylaxis: LMWH Lines/Catheters IV Catheter Type (from Nrsg): Saline Lock Urinary Cath still in place: No Assessment/Plan Hospital Course 1. Cellulitis right arm more likely due to Herpes zoster. 2. hyperglycemia, pt denied DM type II 3. Obesity 4. Under arm fungal infection old 5. Fresh papula on the trunk right side Assessment/Plan - pt was seen by dermatology dr Rice who believed pt had allergic/contact lesions? poison al?? - c/w high dose steroids and topical steroids - herpes zoster igm neg - on vanco/zosyn - wound culture -DVT prop lOVeNOX -dc planning, if ok with Nera, anticipated PO a/b treatment Result Diagram: 04/21/19 0525 04/20/19 0438 Results 24hrs Laboratory Tests Test 04/21/19 05:23 04/21/19 05:25 Vancomycin Level Trough 8.7 L White Blood Count 9.3 # Red Blood Count 4.32 Hemoglobin 13.2 Hematocrit 37.9 Mean Corpuscular Volume 87.7 Mean Corpuscular Hemoglobin 30.6 Mean Corpuscular Hemoglobin Concent 34.8 Red Cell Distribution Width 12.3 Platelet Count 190 Mean Platelet Volume 10.4 Immature Granulocytes % 0.400 Neutrophils % 84.9 H Lymphocytes % 10.1 L Monocytes % 4.4 Eosinophils % 0.1 Basophils % 0.1 Nucleated Red Blood Cells % 0.0 Immature Granulocytes # 0.040 H Neutrophils # 7.9 H Lymphocytes # 0.9 Monocytes # 0.4 Eosinophils # 0.0 Basophils # 0.0 Nucleated Red Blood Cells # 0.0 Subjective 24 Hr Interval Summary Eyes: no complaints Gastrointestinal: no complaints Genitourinary: no complaints Musculoskeletal: swelling (right arm) Exam/Review of Systems Exam Vitals Vital Signs Date Temp Pulse Resp B/P (MAP) Pulse Ox O2 O2 Flow FiO2 Time Delivery Rate 04/21/19 98.0 68 18 108/59 94 Room Air 07:52 (75) Intake and Output 04/20/19 04/20/19 04/21/19 1515:00 23:00 07:00 IntakeIntake Total 1350 ml 970 ml 200 ml BalanceBalance 1350 ml 970 ml 200 ml Constitutional: alert, oriented Neck: supple Respiratory: clear to auscultation Cardiovascular: regular rate and rhythm Musculoskeletal: swelling (right arm with bulla) Results Results 24hrs Laboratory Tests Test 04/21/19 05:23 04/21/19 05:25 Vancomycin Level Trough 8.7 L White Blood Count 9.3 # Red Blood Count 4.32 Hemoglobin 13.2 Hematocrit 37.9 Mean Corpuscular Volume 87.7 Mean Corpuscular Hemoglobin 30.6 Mean Corpuscular Hemoglobin Concent 34.8 Red Cell Distribution Width 12.3 Platelet Count 190 Mean Platelet Volume 10.4 Immature Granulocytes % 0.400 Neutrophils % 84.9 H Lymphocytes % 10.1 L Monocytes % 4.4 Eosinophils % 0.1 Basophils % 0.1 Nucleated Red Blood Cells % 0.0 Immature Granulocytes # 0.040 H Neutrophils # 7.9 H Lymphocytes # 0.9 Monocytes # 0.4 Eosinophils # 0.0 Basophils # 0.0 Nucleated Red Blood Cells # 0.0 Medications Medication Current Medications Diphenhydramine HCl (Benadryl) 25 mg TID PRN PO ITCHING Last administered on 04/20/19 01:04; Admin Dose 25 MG; Start 04/17/19 at 01:00 Acetaminophen/ Hydrocodone Bitart ([place] (5/325)) 1 tab Q6H PRN PO MODERATE PAIN LEVEL 4-6 Last administered on 04/18/19at 20:16; Admin Dose 1 TAB; Start 04/17/19 at 01:00 Enoxaparin Sodium (Lovenox) 40 mg DAILY SC Last administered on 04/21/19at 08:58; Admin Dose 40 MG; Start 04/17/19 at 09:00 Pantoprazole (Protonix Tab) 40 mg DAILY@06 PO Last administered on 04/21/19at 05:37; Admin Dose 40 MG; Start 04/17/19 at 06:00 Acetaminophen (Tylenol Tab) 650 mg Q6H PRN PO MILD PAIN(1-3)OR ELEVATED TEMP; Start 04/17/19 at 01:00 Clotrimazole (Lotrimin Cr) 1 applic BID TOP Last administered on 04/21/19at 08:51; Admin Dose 1 APPLIC; Start 04/17/19 at 12:30 Vancomycin HCl (Vanco Iv Per Pharmacy) VANCOMYCIN PER PHARMACY PER PROTOCOL XX ; Start 04/19/19 at 16:00 Piperacillin Sod/ Tazobactam Sod 100 ml @ 200 mls/hr Q6 IVPB Last administered on 04/21/19at 05:37; Admin Dose 200 MLS/HR; Start 04/20/19 at 12:00 Prednisone (Prednisone) 60 mg DAILY PO Last administered on 04/21/19at 08:50; Admin Dose 60 MG; Start 04/20/19 at 12:00 Clobetasol Propionate (Temovate 0.05% Oint) 1 applic BID TOP Last administered on 04/21/19at 08:51; Admin Dose 1 APPLIC; Start 04/20/19 at 12:00 Vancomycin HCl 1.25 gm/Sodium Chloride 250 ml @ 83.333 mls/ hr Q8H IVPB ; Start 04/21/19 at 14:30 BRANDON SANTANA April 21, 2019 09:35
[2019-04-21] MEDS: VANCOMYCIN HCL 1.25 GM in SOD CHLORIDE 0.9% 250 ML IVPB SCH ×2 (14:33→21:36)
[2019-04-21 14:45] VITALS: BP 112/61; PULSE 87; RESP 18
--- NOTE | 2019-04-21 15:11 | CONS ---
Assessment/Plan Assessment/Plan Hospital Course (Demo Recall) No acute changes patient is aler no fevers overnight. Zoster virus IgM came back negative. Drainage culture negative Abx: Vanco [place] Physical examination: Obese well-developed middle-aged woman who is alert in no distress. Head atraumatic normocephalic neck is supple chest rise symmetrical breath sounds diminished bases. Heart: S1-S2. Abdomen soft bowel sounds present. Extremities without cyanosis. Skin. Right upper extremity with lesions and blisters also on the right breast extending to the trunk Assessment: 1. Right upper extremity/right breast lesions with blisters 2. Diabetes Plan: Stable, continue abx Consultation Date/Type/Reason Admit Date/Time April 17, 2019 at 00:11 Initial Consult Date Type of Consult id Date/Time of Note DATE: 04/21/19 TIME: 15:09 Exam/Review of Systems Exam Vitals Vital Signs Date Temp Pulse Resp B/P (MAP) Pulse Ox O2 O2 Flow FiO2 Time Delivery Rate 04/21/19 98.0 68 18 108/59 94 Room Air 07:52 (75) Intake and Output 04/20/19 04/20/19 04/21/19 1414:59 22:59 06:59 IntakeIntake Total 1350 ml 970 ml 200 ml BalanceBalance 1350 ml 970 ml 200 ml Results Result Diagram: 04/21/19 0525 04/20/19 0438 Results 24hrs Laboratory Tests Test 04/21/19 05:23 04/21/19 05:25 Vancomycin Level Trough 8.7 L White Blood Count 9.3 # Red Blood Count 4.32 Hemoglobin 13.2 Hematocrit 37.9 Mean Corpuscular Volume 87.7 Mean Corpuscular Hemoglobin 30.6 Mean Corpuscular Hemoglobin Concent 34.8 Red Cell Distribution Width 12.3 Platelet Count 190 Mean Platelet Volume 10.4 Immature Granulocytes % 0.400 Neutrophils % 84.9 H Lymphocytes % 10.1 L Monocytes % 4.4 Eosinophils % 0.1 Basophils % 0.1 Nucleated Red Blood Cells % 0.0 Immature Granulocytes # 0.040 H Neutrophils # 7.9 H Lymphocytes # 0.9 Monocytes # 0.4 Eosinophils # 0.0 Basophils # 0.0 Nucleated Red Blood Cells # 0.0 Medications Medication Current Medications Diphenhydramine HCl (Benadryl) 25 mg TID PRN PO ITCHING Last administered on 04/20/19 01:04; Admin Dose 25 MG; Start 04/17/19 at 01:00 Acetaminophen/ Hydrocodone Bitart ([place] (5/325)) 1 tab Q6H PRN PO MODERATE PAIN LEVEL 4-6 Last administered on 04/18/19 20:16; Admin Dose 1 TAB; Start 04/17/19 at 01:00 Enoxaparin Sodium (Lovenox) 40 mg DAILY SC Last administered on 04/21/19 08:58; Admin Dose 40 MG; Start 04/17/19 at 09:00 Pantoprazole (Protonix Tab) 40 mg DAILY@06 PO Last administered on 04/21/19 05:37; Admin Dose 40 MG; Start 04/17/19 at 06:00 Acetaminophen (Tylenol Tab) 650 mg Q6H PRN PO MILD PAIN(1-3)OR ELEVATED TEMP; Start 04/17/19 at 01:00 Clotrimazole (Lotrimin Cr) 1 applic BID TOP Last administered on 04/21/19 08:51; Admin Dose 1 APPLIC; Start 04/17/19 at 12:30 Vancomycin HCl (Vanco Iv Per Pharmacy) VANCOMYCIN PER PHARMACY PER PROTOCOL XX ; Start 04/19/19 at 16:00 Piperacillin Sod/ Tazobactam Sod 100 ml @ 200 mls/hr Q6 IVPB Last administered on 04/21/19 12:16; Admin Dose 200 MLS/HR; Start 04/20/19 at 12:00 Prednisone (Prednisone) 60 mg DAILY PO Last administered on 04/21/19 08:50; Admin Dose 60 MG; Start 04/20/19 at 12:00 Clobetasol Propionate (Temovate 0.05% Oint) 1 applic BID TOP Last administered on 04/21/19 08:51; Admin Dose 1 APPLIC; Start 04/20/19 at 12:00 Vancomycin HCl 1.25 gm/Sodium Chloride 250 ml @ 83.333 mls/ hr Q8H IVPB Last administered on 04/21/19 14:33; Admin Dose 83.333 MLS/HR; Start 04/21/19 at 14:30 Miscellaneous Information (*Rx Drug Level Order Reminder*) VANCOMYCIN TROUGH AT 1330 1330 ONCE XX ; Start 04/22/19 at 13:30; Stop 04/22/19 at 13:31 LILLIAN CROWLEY NP April 21, 2019 15:11
[2019-04-21 20:00] VITALS: BP 115/71; PULSE 92; RESP 19
[2019-04-22] MEDS: PIPER-TAZO 3.375 GM IV (PMX) 100 ML IVPB SCH ×3 (00:39→12:00)
[2019-04-22 02:06] VITALS: BP 115/60; PULSE 70; RESP 18
[2019-04-22] MEDS: PANTOPRAZOLE (EC) 40 MG TAB PO SCH (05:23)
[2019-04-22] MEDS: HYDROCODONE/APAP (5/325) TAB PO PRN (05:23)
[2019-04-22] MEDS: VANCOMYCIN HCL 1.25 GM in SOD CHLORIDE 0.9% 250 ML IVPB SCH (06:16)
[2019-04-22 08:01] VITALS: BP 155/71; PULSE 77; RESP 18
[2019-04-22] MEDS: predniSONE 20 MG TAB PO SCH (08:27)
[2019-04-22] MEDS: ENOXAPARIN 40 MG/0.4 ML SYG SC SCH (08:38)
[2019-04-22] MEDS: CLOTRIMAZOLE 1% 30 GM CR TOP SCH (09:11)
[2019-04-22] MEDS: CLOBETASOL 0.05% 15 GM OINT TOP SCH (09:11)
--- NOTE | 2019-04-22 10:30 | PN ---
Date/Time of Note Date/Time of Note DATE: 04/22/19 TIME: 10:27 Assessment/Plan VTE Prophylaxis Risk score (from Nsg)>0 risk: 2 SCD applied (from Nsg): No SCD contraindicated: low risk/ambulating Pharmacological prophylaxis: LMWH Lines/Catheters IV Catheter Type (from Nrsg): Saline Lock Urinary Cath still in place: No Assessment/Plan Hospital Course 1. Cellulitis right arm more likely due to Herpes zoster. 2. hyperglycemia, pt denied DM type II 3. Obesity 4. Under arm fungal infection old 5. Fresh papula on the trunk right side Assessment/Plan - pt was seen by dermatology dr Rice - c/w high dose steroids and topical steroids - on vanco/zosyn - wound culture: NO ORGANISM SEEN -DVT prop lOVeNOX -dc today after Dr Duron sees her Result Diagram: 04/21/19 0525 04/22/19 0433 Results 24hrs Laboratory Tests Test 04/22/19 04:33 Blood Urea Nitrogen 19 Creatinine 0.60 Subjective 24 Hr Interval Summary Constitutional: improved Exam/Review of Systems Exam Vitals Vital Signs Date Temp Pulse Resp B/P (MAP) Pulse Ox O2 O2 Flow FiO2 Time Delivery Rate 04/22/19 98.5 77 18 155/71 97 08:01 (99) 04/21/19 Room Air 14:45 Intake and Output 04/21/19 04/21/19 04/22/19 1515:00 23:00 07:00 IntakeIntake Total 820 ml 930 ml 450 ml BalanceBalance 820 ml 930 ml 450 ml Constitutional: alert, oriented Respiratory: clear to auscultation Cardiovascular: regular rate and rhythm Gastrointestinal: soft Musculoskeletal: swelling (right arm) Results Results 24hrs Laboratory Tests Test 04/22/19 04:33 Blood Urea Nitrogen 19 Creatinine 0.60 Medications Medication Current Medications Diphenhydramine HCl (Benadryl) 25 mg TID PRN PO ITCHING Last administered on 04/20/19at 01:04; Admin Dose 25 MG; Start 04/17/19 at 01:00 Acetaminophen/ Hydrocodone Bitart ([place] (5/325)) 1 tab Q6H PRN PO MODERATE PAIN LEVEL 4-6 Last administered on 04/22/19at 05:23; Admin Dose 1 TAB; Start at 01:00 Enoxaparin Sodium (Lovenox) 40 mg DAILY SC Last administered on 04/22/19 08:38; Admin Dose 40 MG; Start 04/17/19 at 09:00 Pantoprazole (Protonix Tab) 40 mg DAILY@06 PO Last administered on 04/22/19 05:23; Admin Dose 40 MG; Start 04/17/19 at 06:00 Acetaminophen (Tylenol Tab) 650 mg Q6H PRN PO MILD PAIN(1-3)OR ELEVATED TEMP; Start 04/17/19 at 01:00 Clotrimazole (Lotrimin Cr) 1 applic BID TOP Last administered on 04/22/19 09:11; Admin Dose 1 APPLIC; Start 04/17/19 at 12:30 Vancomycin HCl (Vanco Iv Per Pharmacy) VANCOMYCIN PER PHARMACY PER PROTOCOL XX ; Start 04/19/19 at 16:00 Piperacillin Sod/ Tazobactam Sod 100 ml @ 200 mls/hr Q6 IVPB Last administered on 04/22/19 05:25; Admin Dose 200 MLS/HR; Start 04/20/19 at 12:00 Prednisone (Prednisone) 60 mg DAILY PO Last administered on 04/22/19 08:27; Admin Dose 60 MG; Start 04/20/19 at 12:00 Clobetasol Propionate (Temovate 0.05% Oint) 1 applic BID TOP Last administered on 04/22/19 09:11; Admin Dose 1 APPLIC; Start 04/20/19 at 12:00 Vancomycin HCl 1.25 gm/Sodium Chloride 250 ml @ 83.333 mls/ hr Q8H IVPB Last administered on 04/22/19 06:16; Admin Dose 83.333 MLS/HR; Start 04/21/19 at 14:30 Miscellaneous Information (*Rx Drug Level Order Reminder*) VANCOMYCIN TROUGH AT 1330 1330 ONCE XX ; Start 04/22/19 at 13:30; Stop 04/22/19 at 13:31 BRANDON SANTANA April 22, 2019 10:30
[2019-04-22 13:39] VITALS: BP 117/69; PULSE 81; RESP 18
--- NOTE | 2019-04-22 14:35 | PDOCDIS ---
Discharge Instructions DIAGNOSIS Discharge Diagnosis ? poison al allergic contact dermatitis CONDITION [id number] Patient Condition: Nquyb0n Fair HOME CARE INSTRUCTIONS: [id number] Diet Instructions: [id number] Regular ACTIVITY: [id number] Activity Restrictions: [id number] Slowly Increase Activity Rest between Activity Avoid heavy lifting FOLLOW UP/APPOINTMENTS Follow-up Plan fu PCP in 1 week bookerjksilvia steroids as written apply cream fu dermatology in 1-2 weeks return to ER if has severe pain/ redness/ fevers and chills ADRIANA JOHNSON MD April 22, 2019 14:35
[2019-04-22] MEDS ORDERED: PRED20TA PO (14:37)
[2019-04-22] MEDS ORDERED: DOXY100T21 PO (14:37)
[2019-04-22] MEDS ORDERED: BEN25 PO (14:37)
[2019-04-22] MEDS ORDERED: CLOB15OI15 TOP (14:37)
--- NOTE | 2019-04-22 14:45 | CONS ---
Assessment/Plan Assessment/Plan Hospital Course (Demo Recall) No acute changes skin lesions look better Physical examination: Obese well-developed middle-aged woman who is alert in no distress. Head atraumatic normocephalic neck is supple chest rise symmetrical breath sounds diminished bases. Heart: S1-S2. Abdomen soft bowel sounds present. Extremities without cyanosis. Skin. Right upper extremity with lesions and blisters also on the right breast extending to the trunk Assessment: 1. Right upper extremity/right breast lesions with blisters 2. Diabetes Plan: ok dc on oral Doxycycline for 7 days, continue steroids, f/u with derm Consultation Date/Type/Reason Admit Date/Time April 17, 2019 at 00:11 Initial Consult Date Type of Consult id Date/Time of Note DATE: 04/22/19 TIME: 14:44 Exam/Review of Systems Exam Vitals Vital Signs Date Temp Pulse Resp B/P (MAP) Pulse Ox O2 O2 Flow FiO2 Time Delivery Rate 04/22/19 98.8 81 18 117/69 97 13:39 (85) 04/21/19 Room Air 14:45 Intake and Output 04/21/19 04/21/19 04/22/19 1515:00 23:00 07:00 IntakeIntake Total 820 ml 930 ml 450 ml BalanceBalance 820 ml 930 ml 450 ml Results Result Diagram: 04/21/19 0525 04/22/19 0433 Results 24hrs Laboratory Tests Test 04/22/19 04:33 Blood Urea Nitrogen 19 Creatinine 0.60 Medications Medication Current Medications Diphenhydramine HCl (Benadryl) 25 mg TID PRN PO ITCHING Last administered on 04/20/19at 01:04; Admin Dose 25 MG; Start 04/17/19 at 01:00 Acetaminophen/ Hydrocodone Bitart ([place] (5/325)) 1 tab Q6H PRN PO MODERATE PAIN LEVEL 4-6 Last administered on 04/22/19at 05:23; Admin Dose 1 TAB; Start 04/17/19 at 01:00 Enoxaparin Sodium (Lovenox) 40 mg DAILY SC Last administered on 04/22/19at 08:38; Admin Dose 40 MG; Start 04/17/19 at 09:00 Pantoprazole (Protonix Tab) 40 mg DAILY@06 PO Last administered on 04/22/19at 05:23; Admin Dose 40 MG; Start 04/17/19 at 06:00 Acetaminophen (Tylenol Tab) 650 mg Q6H PRN PO MILD PAIN(1-3)OR ELEVATED TEMP; Start 04/17/19 at 01:00 Clotrimazole (Lotrimin Cr) 1 applic BID TOP Last administered on 04/22/19 09:11; Admin Dose 1 APPLIC; Start 04/17/19 at 12:30 Vancomycin HCl (Vanco Iv Per Pharmacy) VANCOMYCIN PER PHARMACY PER PROTOCOL XX ; Start 04/19/19 at 16:00 Piperacillin Sod/ Tazobactam Sod 100 ml @ 200 mls/hr Q6 IVPB Last administered on 04/22/19 05:25; Admin Dose 200 MLS/HR; Start 04/20/19 at 12:00 Prednisone (Prednisone) 60 mg DAILY PO Last administered on 04/22/19 08:27; Admin Dose 60 MG; Start 04/20/19 at 12:00 Clobetasol Propionate (Temovate 0.05% Oint) 1 applic BID TOP Last administered on 04/22/19 09:11; Admin Dose 1 APPLIC; Start 04/20/19 at 12:00 Vancomycin HCl 1.25 gm/Sodium Chloride 250 ml @ 83.333 mls/ hr Q8H IVPB Last administered on 04/22/19 06:16; Admin Dose 83.333 MLS/HR; Start 04/21/19 at 14:30 LILLIAN CROWLEY NP April 22, 2019 14:45
[2019-04-22] MEDS ORDERED: PROPOFOL 20 ML ONE (18:14)
[2019-04-22] MEDS ORDERED: ROCURONIUM 50 MG INJ ONE (18:14)
[2019-04-22] MEDS ORDERED: MIDAZOLAM 1 MG/ML 2 ML INJ ONE (18:15)
[2019-04-22] MEDS ORDERED: ROPIVACAINE 0.5 % 30 ML VIAL ONE (18:18)
[2019-04-22] MEDS ORDERED: ONDANSETRON 4 MG INJ ONE (18:43)
[2019-04-22] MEDS ORDERED: CEFAZOLIN 1 GM INJ ONE (18:43)
[2019-04-22] MEDS ORDERED: SUGAMMADEX SODIUM 200 MG/2 ML VIAL IV ONE (19:41)
--- NOTE | 2019-04-22 22:59 | DS ---
DATE OF ADMISSION: 04/17/2019 DATE OF DISCHARGE: 04/22/2019 HISTORY OF PRESENT ILLNESS AND HOSPITAL COURSE: This is a 48-year-old female with no past medical hi story who was seen in the ER as she was having a rash on the right arm for 1 week and was prescribed steroids and acyclovir. Rash was not changed, despite had more blisters on the trunk and the arm and went to [facility] and was sent in to [facility] due to insurance reasons there. The cari paz had CBC, BMP that was normal. The patient was continued on acyclovir. The patient was here ad mitted to med/surg unit. Gram stain was sent that was negative. White count was normal. Then, the history was obtained from the patient. The patient said that while she was working in the garden all of a sudden she started noticing these lesions on the arm, on the right side of the breast, abdomen and also on the left arm. These lesions were erythematous with some bullous lesions, which were pres ent on the arm, had an erythematous base. Initial thought was, however, the patient had herpes varic sharri zoster. IgM was negative. The patient was initially kept on acyclovir. The patient was being followed by Infectious Disease. However, the patient did not have any clinical improvement also. Ca se was discussed with the dermatology, Dr. Rice, who saw the patient as a curbside and also thought that the patient had allergic contact dermatitis, questionable poison al. The patient was started on high dose prednisone 60 mg. Also, was started on clobetasone cream. With that the patient had ma rked improvement. Currently, the patient is feeling much better and the bolus have almost disappeare d and the lesions are improving and patient will be followed by PCP in 1 to 2 weeks and dermatology i n 1 to 2 weeks. FINAL DISCHARGE DIAGNOSES: 1. Right hand lesions and also lesions on the right side of the abdomen and on the left arm, likely secondary to allergic contact dermatitis/questionable poison al. 2. Obesity. DISCHARGE CONDITION: Stable. DISCHARGE DIET: Regular. DISCHARGE MEDICATIONS: Prednisone 60 mg p.o. daily for 5 days, 40 mg for 7 days total of 14 days and then 30 prednisone tapering for 14 more days, which is 30 mg for 5 days, 20 mg for 4 days, 10 mg for 3 days, 5 mg for 2 days and then discontinue, also was given Pepcid p.r.n. dyspepsia. Clobetasol cr eam topical b.i.d. to affected areas, Benadryl p.r.n. itching and Doxycycline 100 mg p.o. b.i.d. for 7 more days. PLAN: The patient was instructed to follow up with PCP in 1 to 2 weeks and dermatology 1 to 2 weeks. Return to ER if the patient has severe erythema, redness, fevers, chills, any discharge. Dictated By: ADRIANA KELLEY/TANVIR Conf#: [id number] DID#: [id number] CC: QUIN MOCTEZUMA MD; TARAS CROW MD;*[facility]*
== END 2019-04-22 17:23 | disposition home or self-care (01) | DRG 603 ==
LOC: 2NE 04-17 00:11
PROVIDERS: ADMIT Internal Medicine Nephrology; ATTEND Internal Medicine Nephrology
DX: L03.113 Cellulitis of right upper limb (principal); B02.8 Zoster with other complications; L23.7 Allergic contact dermatitis due to plants, except food; B97.89 Other viral agents as the cause of diseases classified elsewhere; L24.7 Irritant contact dermatitis due to plants, except food; E66.9 Obesity, unspecified; Z68.32 Body mass index [BMI] 32.0-32.9, adult; E11.9 Type 2 diabetes mellitus without complications
CPT/HCPCS: 80048; 80053; 80202; 82565; 83036; 84520; 85025; 86703; 87070; J0690; J1650; J2250; J2405; J2543; J2795; J3010; J3370; J7030; J7040; J7050; J7512

== ENCOUNTER 2019-05-15 21:55 | Emergency (ER) | payer BC ==
[~2019-05-15] VITALS: Ht 165.1 cm; Wt 88.0 kg
[~2019-05-15 21:55] MED LIST changes: +ACET-141 PO; +BEN25 PO; +CIPR500T4 PO; +CLOB15OI15 TOP; +DOXY100T21 PO; +IBUP-1542 PO; +IBUP800T48 PO; -LEVO500T48 PO; +ONDA4TAB14 PO; +PHEN-538 PO; +PRED20TA PO; +SULF1TAB31 PO
[2019-05-15 21:57] VITALS: Ht 165.1 cm; Wt 88.0 kg
[2019-05-15] MEDS ORDERED: SOD CHLORIDE 0.9% 1,000 ML IV STA (22:15)
[2019-05-15] MEDS ORDERED: morphine 4 MG/ML VIAL IV STA (22:15)
[2019-05-15] MEDS ORDERED: ONDANSETRON 4 MG INJ IV STA (22:15)
[2019-05-15] MEDS ORDERED: KETOROLAC 30 MG INJ IV STA (23:14)
[2019-05-15] MEDS ORDERED: CEFTRIAXONE 1 GM/50 ML (PMX) 50 ML IVPB ONE (23:30)
[2019-05-16 00:26] VITALS: BP 126/65; PULSE 81; RESP 22
== END 2019-05-16 00:28 | disposition home or self-care (01) ==
LOC: E/R 21:55
DX: R10.9 Unspecified abdominal pain (principal)
CPT/HCPCS: 74176; 80053; 81001; 81025; 83690; 85025; 87086; J0696; J2270; J2405; J7030; 36415; 96374; 96375

== ENCOUNTER 2019-05-26 19:06 | Emergency (ER) | payer BC ==
[~2019-05-26] VITALS: Ht 165.1 cm; Wt 88.2 kg
[~2019-05-26 19:06] MED LIST changes: -ACET-141 PO; -CIPR500T4 PO; -IBUP800T48 PO; -PHEN-538 PO
[2019-05-26 19:32] VITALS: Ht 165.1 cm; Wt 88.2 kg
[2019-05-26] MEDS ORDERED: CIPROFLOXACIN 500 MG TAB PO ONE (21:00)
[2019-05-26] MEDS ORDERED: PHENAZOPYRIDINE 100 MG TAB PO ONE (21:00)
[2019-05-26] MEDS ORDERED: CIPR500T4 PO (21:38)
[2019-05-26] MEDS ORDERED: IBUP800T48 PO (21:38)
[2019-05-26] MEDS ORDERED: ACET-141 PO (21:38)
[2019-05-26] MEDS ORDERED: PHEN-538 PO (21:38)
[2019-05-26] MEDS ORDERED: ACETAMINOPHEN 500 MG TAB PO STA (21:41)
[2019-05-26 21:57] VITALS: BP 117/71; PULSE 79; RESP 18
[2019-05-26] MEDS ORDERED: IBUPROFEN 600 MG TAB PO ONE (22:00)
--- NOTE | 2019-05-27 12:57 | ERD ---
ER Documentation Chief Complaint Chief Complaint Here for Lab results, received letter from [facility] HPI History of Present Illness: 48-year-old female who denies a past medical history coming in today due to receiving a letter from [facility] regarding critical lab results. Patient reports a visit cephalic respiratory emergency department on and she was diagnosed with urinary tract infection in which she was given Bactrim antibiotics. Patient reports that symptoms initially did go away but she noticed 2 days ago that the symptoms have returned including dysuria and left flank pain. Denies fatigue, fever, chills, abdominal pain. At home pharmacological/nonpharmacological treatment for symptoms: Denies Denies social concerns; Denies recent foreign travel ROS All systems reviewed and are negative except as per history of present illness. Medications Home Meds Active Scripts Ibuprofen* (Motrin*) 800 Mg Tab, 800 MG PO Q6H PRN for PAIN AND OR ELEVATED TEMP, #30 TAB Prov:MATTHEW BINGHAM NP 05/26/19 Acetaminophen* (Acetaminophen*) 500 MG Extra Strength Tablet, 1000 MG PO Q6H PRN for PAIN AND OR ELEVATED TEMP, #30 TAB Prov:MATTHEW BINGHAM NP 05/26/19 Phenazopyridine Hcl* (Pyridium*) 200 Mg Tab, 200 MG PO TID PRN for URINARY PAIN, #5 TAB Prov:MATTHEW BINGHAM NP 05/26/19 Ciprofloxacin Hcl* (Ciprofloxacin Hcl*) 500 Mg Tablet, 500 MG PO BID for URINE INFECTION for 7 Days, #13 TAB Prov:MATTHEW BINGHAM NP 05/26/19 Ondansetron (Ondansetron Odt) 4 Mg Tab.rapdis, 4 MG PO Q6H PRN for NAUSEA AND/OR VOMITING, #10 TAB Prov:SHELIA VELOZ 05/16/19 Ibuprofen* (Motrin*) 600 Mg Tab, 600 MG PO Q6, #30 TAB Prov:SHELIA VELOZ 05/16/19 Sulfamethoxazole/Trimethoprim* (Bactrim Ds* Tablet) 1 Each Tablet, 1 TAB PO BID, #14 TAB Prov:SHELIA VELOZ 05/16/19 Doxycycline Monohydrate* (Doxycycline Monohydrate*) 100 Mg Tablet, 100 MG PO BID for 7 Days, TAB Prov:ADRIANA JHONSON MD 04/22/19 Clobetasol Propionate* (Clobetasol Propionate*) 15 Gm Oint, 1 APPLIC TOP BID for 30 Days Prov:ADRIANA JOHNSON MD 04/22/19 Prednisone* (Prednisone*) 20 Mg Tab, 60 MG PO DAILY for 28 Days, TAB Prov:ADRIANA JOHNSON MD 04/22/19 Diphenhydramine Hcl* (Benadryl*) 25 Mg Cap, 25 MG PO TID PRN for ITCHING for 30 Days, CAP Prov:ADRIANA JOHNSON MD 04/22/19 Reported Medications Meclizine Hcl* (Meclizine Hcl*) 25 Mg Tablet, 25 MG PO Q6 PRN for DIZZINESS, TAB 04/29/17 Sxzkzcvvbc-Bxqwdspqccmir-Ynzwqxhv* (Fioricet*) 50-300-40 Mg Capsule, 1 CAP PO Q4H PRN for MIGRANES, CAP 04/29/17 Allergies Allergies: Coded Allergies: No Known Allergy (Unverified , 04/29/17) PMhx/Soc Medical and Surgical Hx: pt denies Medical Hx History of Surgery: Yes ( x2) Anesthesia Reaction: No Hx Neurological Disorder: No Hx Respiratory Disorders: No Hx Cardiac Disorders: No Hx Psychiatric Problems: No Hx Miscellaneous Medical Probl: No Hx Alcohol Use: Yes (socially) Hx Substance Use: No Hx Tobacco Use: No FmHx Family History: No diabetes, No coronary disease Physical Exam Vitals Vital Signs Date Temp Pulse Resp B/P (MAP) Pulse Ox O2 O2 Flow FiO2 Time Delivery Rate 05/26/19 97.8 79 18 117/71 95 Room Air 21:57 (86) 05/26/19 98.5 21:47 05/26/19 98.5 21:46 05/26/19 99.8 96 18 139/57 96 19:32 (84) Physical Exam Const: No acute distress, afebrile Head: Atraumatic Eyes: Normal Conjunctiva ENT: Normal External Ears, Nose and Mouth. Neck: Full range of motion. No meningismus. Resp: Clear to auscultation bilaterally Cardio: Regular rate and rhythm, no murmurs Abd: Soft, suprapubic tenderness, non distended. No guarding, no masses, no rigidity Skin: No petechiae or rashes Back: No midline or flank tenderness; no CVA tenderness Ext: No cyanosis, or edema Neur: Awake and alert x3, speaking in clear sentences, no focal deficits or facial asymmetry Psych: Normal Mood and Affect Results 24 hrs Laboratory Tests Test 05/26/19 20:58 Urine Color YELLOW Urine Clarity CLEAR Urine pH 5.0 Urine Specific [place] 1.026 Urine Ketones NEGATIVE mg/dL Urine Nitrite NEGATIVE mg/dL Urine Bilirubin NEGATIVE mg/dL Urine Urobilinogen NEGATIVE mg/dL Urine Leukocyte Esterase NEGATIVE Nicolette/ul Urine Microscopic RBC 2 /HPF Urine Microscopic WBC 3 /HPF Urine Mucus FEW /HPF Urine Hemoglobin 1+ mg/dL Urine Glucose NEGATIVE mg/dL Urine Total Protein NEGATIVE mg/dl Current Medications Medications Dose Sig/Leonides Start Time Status Last (Trade) Ordered Route PRN Stop Time Admin Dose Reason Admin 200 mg ONCE ONCE 05/26/19 DC 05/26/19 Phenazopyridi PO 21:00 21:03 ne HCl 05/26/19 21:01 (Pyridium) 500 mg ONCE ONCE 05/26/19 DC 05/26/19 Ciprofloxacin PO 21:00 21:03 (Cipro) 05/26/19 21:01 1,000 mg ONCE STAT 05/26/19 DC 05/26/19 Acetaminophen PO 21:41 21:47 (Tylenol 05/26/19 21:43 Tab) Ibuprofen 600 mg ONCE ONCE 05/26/19 DC 05/26/19 (Motrin) PO 22:00 21:46 05/26/19 22:00 Procedures/MDM ED COURSE: ED course includes a thorough examination and history. The patient was stable throughout ED course. I kept the patient and/or family informed of laboratory and diagnostic imaging results throughout the ED course. LABS: Urinalysis shows only 3 WBCs and negative bacteria. MEDICATIONS GIVEN IN ER: Ciprofloxacin; given based on urine culture results from 05/15/2019 in which 2 organisms grew including Proteus Mirabilis and K pneumoniae; it appears that the Bactrim that was given previously would treat the Proteus Mirabilis but not the K pneumoniae so ciprofloxacin would need to be given to treat the K pneumoniae. Pyridium for pain. acetaminophen and ibuprofen for low grade fever and pain. Patient tolerated medication well with no adverse reactions. Patient reported improvement in pain. DIAGNOSTIC IMAGING: None. PROCEDURES: None. MEDICAL DECISION MAKING: Low suspicion for life-threatening medical emergency. Otherwise healthy patient presenting with constellation of symptoms likely representing dysuria and positive urine culture as characterized by history, physical exam findings, lab findings. Patient reassessment @ 214: Patient hemodynamically stable. No respiratory distress, otherwise relatively well appearing and nontoxic. Disposition given. Patient educated on diagnoses, prescriptions, follow-up care, return precautions. Strict return precautions given for worsening condition; questions answered discharge. Patient verbalizes understanding of discharge instructions. PRESCRIPTIONS FOR HOME: Ciprofloxacin. Pyridium. Ibuprofen. Apap DISPOSITION: DISCHARGE At this time, patient is stable for discharge and outpatient management. I have instructed the patient to follow-up with his/her primary care physician in 1-2 days. I have discussed with the patient the possibility of needing to see a specialist for further workup and imaging studies if symptoms persist. I have instructed the patient to promptly return to the ER for any new or worsening symptoms including increased pain, fever, nausea, vomiting, weakness or LOC. The patient and/or family expressed understanding of and agreement with this plan. All questions were answered. Home care instructions were provided. DISCLAIMER: Inadvertent spelling and grammatical errors are likely due to EHR/dictation software use and do not reflect on the overall quality of patient care. Also, p kumar note that the electronic time recorded on this note does not necessarily reflect the actual time of the patient encounter. Departure Diagnosis: Primary Impression: Dysuria Additional Impression: Urine culture positive Condition: Stable Patient Instructions: Dysuria [facility] Usted se fowler hecho un examen mdico de control que le indica que no est en sandi condicin que requiera tratamiento urgente en el Departamento de Emergencia. Un estudio ms profundo y el tratamiento de navarrete condicin pueden esperar sin ningn riesgo hasta que usted sea atendida/o en el consultorio de navarrete mdico o sandi clnica. Es responsabilidad suya arreglar sandi ruth para el seguimiento del sissy. MANEJO DE CONDICIONES NO URGENTES EN EL FUTURO 1) Si usted tiene un mdico de atencin primaria: Usted debera llamar a navarrete mdico de atencin primaria antes de venir al departamento de emergencia. Despus de las horas de consultorio, navarrete doctor o navarrete asociado/a est disponible por telfono. El mdico o enfermero de elvira en el servicio telefnico puede asesorarle por dickson medio para atender el problema, o sissy contrario se puede programar sandi ruth. 2) Si usted no tiene un mdico de atencin primaria: Llame al mdico o clnica de referencia que aparece abajo julio las horas de consultorio para hacer sandi ruth para que le vean. CLINICAS: [facility] [phone] [facility] [phone] [facility] [phone] [place] [id number] [phone] [facility] [place] [id number] [phone] [facility]. [phone] [address] [facility] [facility] () Usted se fowler hecho un examen mdico de control que le indica que no est en sandi condicin que requiera tratamiento urgente en el Departamento de Emergencia. Un estudio ms profundo y el tratamiento de navarrete condicin pueden esperar sin ningn riesgo hasta que usted sea atendida/o en el consultorio de navarrete mdico o sandi clnica. Es responsabilidad suya arreglar sandi ruth para el seguimiento del sissy. MANEJO DE CONDICIONES NO URGENTES EN EL FUTURO 1) Si usted tiene un mdico de atencin primaria: Usted debera llamar a navarrete mdico de atencin primaria antes de venir al departamento de emergencia. Despus de las horas de consultorio, navarrete doctor o navarrete asociado/a est disponible por telfono. El mdico o enfermero de elvira en el servicio telefnico puede asesorarle por dickson medio para atender el problema, o sissy contrario se puede programar sandi ruth. 2) Si usted no tiene un mdico de atencin primaria: Llame al mdico o condado institucions de referencia que aparece abajo julio las horas de consultorio para hacer sandi ruth para que le vean. SI USTED NO PUEDE PAGAR PARA JAKOB UN MEDICO puede ir a: [facility] [address] [place] [address] [facility] [address] [place] [address] [facility] [address] [place] [address] PARA [facility] [address] [place], [place] [id number] Additional Instructions: Muchas andrew por permitirnos participar en navarrete cuidado. Navarrete madonna y seguridad es nuestra principal prioridad en [facility]. Es importante leer todas las instrucciones de glenn y la educacin que se proporcionan en navarrete paquete de glenn. *La ciprofloxacina puede aumentar el riesgo de tendinitis y rotura del tendn. Si desarrolla dolor dudley en el tendn de Mario, suspenda la medicacin y regrese al servicio de urgencias.* Llame a navarrete mdico de atencin primaria MAANA para sandi ruth julio los prximos 2 a 4 álvarez y lleve toda la informacin y los medicamentos recetados. Llene las recetas y siga exactamente las instrucciones de la etiqueta. -Ciprofloxacina es un antibitico; tome dinorah medicamento todos los álvarez shahid se indica en navarrete receta. Debe completar todo el curso de tratamiento que figura en navarrete receta. [facility] es muy importante porque se necesitan varios álvarez para eliminar las bacterias que causan la infeccin. -Fenazopyridine / Pyridium es un medicamento que ayudar a disminuir el dolor urinario. Dinorah medicamento tyler que navarrete orina adquiera un color naranja. Dinorah es un efecto secundario normal de la medicacin. --Acetaminofeno shahid medicamento para el dolor y / o fiebre. [place] dinorah medicamento segn sea necesario para el dolor leve a moderado. Dinorah medicamento no causar somnolencia. --Ibuprofeno es un medicamento que ayuda con el dolor / inflamacin. En la dosis de 600 a 800 mg, esto ayudar con la inflamacin / hinchazn. [place] dinorah medicamento segn las indicaciones. Si los sntomas empeoran y navarrete proveedor no est disponible, regrese inmediatamente al Departamento de Emergencias. ---- Thank you very much for allowing us to participate in your care. Your health and safety is our top priority at [facility]. It is important to read all discharge instructions and education provided in your discharge packet. Call your primary care doctor TOMORROW for an appointment during the next 2-4 days and bring all the information and medications prescribed. *Ciprofloxacin may increase the risk of tendinitis and tendon rupture. If you develop severe Achilles Tendon pain, stop medication and return to emergency department.* Have prescriptions filled and follow precisely the directions on the label. -Ciprofloxacin is an antibiotic; take this medication every day as listed on your prescription. You must complete the entire course of treatment that is listed on your prescription this is very important because it takes a certain number of days to kill the bacteria that is causing the infection. -Phenazopyridine/Pyridium is a medication that will help decrease urinary pain. This medication will make your urine turn orange color. This is a normal side effect of the medication. --Acetaminophen as a medication for pain and/or fever. Take this medication as needed for mild to moderate pain. This medication will not cause drowsiness. --Ibuprofen is a medication that will help with pain/inflammation. At the dosage of 600 to 800 mg, this will help with inflammation/swelling. Take this medication as prescribed. If the symptoms get worse and your provider is unavailable, return to the Emergency Department immediately. MATTHEW BINGHAM NP May 27, 2019 12:54
== END 2019-05-26 21:58 | disposition home or self-care (01) ==
LOC: FTE 19:06
DX: R30.0 Dysuria (principal); R82.79 Other abnormal findings on microbiological examination of urine
CPT/HCPCS: 81001; 87086; 99283; Z7610